=== PATIENT | female | born 1995 | race African-American/Black ===

== ENCOUNTER 2020-01-06 11:13 | Observation (INO) ==
[2020-01-06] MEDS ORDERED: METOCLOPRAMIDE 10 MG/2 ML VIAL IV STA (11:51)
[2020-01-06] MEDS ORDERED: PANTOPRAZOLE 40 MG VIAL IV STA (11:51)
[2020-01-06] MEDS ORDERED: ONDANSETRON 4 MG/2 ML VIAL IV STA (11:51)
[2020-01-06] MEDS ORDERED: SODIUM CHLORIDE 0.9% 1,000 ML IV STA ×2 (11:51→13:09)
[2020-01-06] MEDS ORDERED: PROMETHAZINE INJ 25 MG in SODIUM CHLORIDE 0.9% 50 ML IV STA (13:09)
[2020-01-06] MEDS ORDERED: PROMETHAZINE 25 MG/1 ML VIAL ONE (13:10)
[2020-01-06 13:18] LABS: Apearance,Urine Slightly Hazy (Clear); Bilirubin,Urine Moderate mg/dL (Negative); Blood, Urine Small mg/dL (Negative); Glucose,Urine (UA) Negative (Negative); Hyaline Casts,Urine 67 /LPF (0-3); Ketones,Urine 20 mg/dL (Negative); Mucus,Urine Few /LPF (Occasional); Nitrite,Urine Negative (Negative); Protein,Urine 100 MG/DL; RBC,Urine 8 /HPF (0-4); Squamous Epithelial Cell,Urine Few /HPF (0-10); Urine Color Dark yellow (Yellow); Urine Specific Gravity 1.016 (1.001-1.035); WBC,Urine 31 /HPF (0-6)
[2020-01-06] MEDS ORDERED: cefTRIAXone 1,000 MG in SODIUM CHLORIDE 0.9% 100 ML IV STA (13:31)
[2020-01-06 13:43] LABS: Basophils # 0.1 10*3/uL (0.0-0.2); Basophils % 0.4 % (0.0-0.8); Eosinophils % 0.1 % (0.00-10.9); Hemoglobin 16.4 GM/DL (12.0-16.0); Immature Granulocytes % 0.4 %; Immature Granulocytes Absolute 0.05 #; Lymphocytes # 1.8 10*3/uL (1.4-4.0); Lymphocytes % 12.6 % (21.3-54.2); Mean Corpuscular HGB Conc 34.2 GM/DL (32-36); Mean Corpuscular Volume 82.5 FL (87-102); Monocytes % 5.3 % (1.7-12.7); Neutrophils % 81.2 % (38.7-73.9); Platelet Count 352 T/CUMM (130-400); Red Blood Count 5.82 MC/CUMM (3.8-5.5); Red Cell Distribution Width 12.7 % (9.3-17.3); White Blood Count 13.9 T/CUMM (4-12)
[2020-01-06 13:47] LABS: Calcium 11.1 MG/DL (8.5-10.1); Osmolality,Calculated 288.4 MOS/KG (273-304)
[2020-01-06 14:53] LABS: Platelet Estimate Adequate
[2020-01-06] MEDS ORDERED: MAGNESIUM HYDROXIDE SUSP 30 ML UDCUP PO PRN (15:54)
[2020-01-06] MEDS ORDERED: IBUPROFEN 800 MG TABLET PO PRN (15:54)
[2020-01-06] MEDS ORDERED: ACETAMINOPHEN 325 MG TABLET PO PRN (15:54)
[2020-01-06] MEDS ORDERED: PROMETHAZINE INJ 25 MG in SODIUM CHLORIDE 0.9% 50 ML IV PRN (15:54)
[2020-01-06] MEDS ORDERED: BISACODYL 10 MG SUPP RECTAL PRN (15:54)
[2020-01-06] MEDS ORDERED: POTASSIUM CHLORIDE RIDER 20 MEQ in PREMIX 1 EACH IV ONE (16:30)
[2020-01-06] MEDS: LACTATED RINGERS 1,000 ML IV SCH (16:40)
[2020-01-06] MEDS: ONDANSETRON 4 MG/2 ML VIAL IV PRN (17:46)
[2020-01-06] MEDS: PANTOPRAZOLE 40 MG VIAL IV SCH (20:55)
[2020-01-06] MEDS: METOCLOPRAMIDE 10 MG/2 ML VIAL IV PRN (22:16)
[2020-01-07] MEDS: ONDANSETRON 4 MG/2 ML VIAL IV PRN ×3 (01:45→16:48)
[2020-01-07] MEDS: LACTATED RINGERS 1,000 ML IV SCH ×2 (01:45→19:51)
[2020-01-07] MEDS: METOCLOPRAMIDE 10 MG/2 ML VIAL IV PRN ×3 (04:45→22:58)
[2020-01-07 05:04] LABS: Basophils # 0.1 10*3/uL (0.0-0.2); Basophils % 0.6 % (0.0-0.8); Eosinophils # 0.1 10*3/uL (0.0-0.87); Eosinophils % 0.6 % (0.00-10.9); Hemoglobin 11.9 GM/DL (12.0-16.0); Immature Granulocytes % 0.2 %; Immature Granulocytes Absolute 0.02 #; Lymphocytes % 21.4 % (21.3-54.2); Mean Corpuscular HGB Conc 33.1 GM/DL (32-36); Mean Corpuscular Volume 84.9 FL (87-102); Mean Platelet Volume 10.9 FL (9.6-12.0); Monocytes % 9.2 % (1.7-12.7); Platelet Count 238 T/CUMM (130-400); Red Blood Count 4.24 MC/CUMM (3.8-5.5); White Blood Count 9.4 T/CUMM (4-12)
[2020-01-07 05:32] LABS: Calcium 9.5 MG/DL (8.5-10.1); Osmolality,Calculated 295.1 MOS/KG (273-304)
[2020-01-07] MEDS: POTASSIUM CHLORIDE RIDER 10 MEQ in PREMIX 1 EACH IV PRN ×3 (06:28→23:03)
[2020-01-07] MEDS ORDERED: MULTIVITAMIN INJ 10 ML in SODIUM CHLORIDE 0.9% 1,000 ML IV SCH (08:30)
[2020-01-07] MEDS: PANTOPRAZOLE 40 MG VIAL IV SCH ×2 (09:17→20:26)
[2020-01-07] MEDS: DOCUSATE SODIUM 100 MG CAPSULE PO SCH ×2 (09:24→20:26)
[2020-01-07] MEDS ORDERED: cefTRIAXone 1,000 MG in SYRINGE 1 EACH IV SCH (13:00)
[2020-01-08] MEDS: ONDANSETRON 4 MG/2 ML VIAL IV PRN (02:12)
[2020-01-08] MEDS: LACTATED RINGERS 1,000 ML IV SCH ×2 (04:10→09:18)
[2020-01-08] MEDS: METOCLOPRAMIDE 10 MG/2 ML VIAL IV PRN (04:56)
[2020-01-08 05:24] LABS: Calcium 8.9 MG/DL (8.5-10.1)
[2020-01-08] MEDS ORDERED: SCOPOLAMINE 1.5 MG PATCH TRANSDERM ONE (07:34)
[2020-01-08] MEDS ORDERED: METOCLOPRAMIDE 10 MG TABLET PO SCH ×2 (08:00→11:00)
[2020-01-08] MEDS ORDERED: SODIUM CHLOR 0.9% KCL 20 MEQ 20 MEQ/1,000 ML BAG IV SCH (08:00)
[2020-01-08] MEDS: DOCUSATE SODIUM 100 MG CAPSULE PO SCH (08:42)
[2020-01-08] MEDS ORDERED: POTASSIUM CHLORIDE 20 MEQ TABLET PO PRN (08:43)
[2020-01-08] MEDS ORDERED: PANTOPRAZOLE 40 MG TABLET PO SCH (09:00)
[2020-01-08 12:13] VITALS: BP 105/55
[2020-01-08] MEDS ORDERED: POTASSIUM CHLORIDE 20 MEQ TABLET PO SCH (21:00)
== END 2020-01-08 13:55 | disposition home or self-care (01) ==
LOC: N.EDINP 11:13 → N.ED 11:13 → N.OB 15:22
PROVIDERS: ADMIT Specialist; ATTEND Specialist

== ENCOUNTER 2020-01-20 10:28 | Observation (INO) ==
[2020-01-20 11:52] LABS: Basophils % 0.3 % (0.0-0.8); Eosinophils % 0.3 % (0.00-10.9); Hematocrit 36.8 VOL% (35.7-47.0); Hemoglobin 12.5 GM/DL (12.0-16.0); Immature Granulocytes % 0.3 %; Immature Granulocytes Absolute 0.03 #; Lymphocytes # 1.6 10*3/uL (1.4-4.0); Lymphocytes % 16.5 % (21.3-54.2); Mean Corpuscular Volume 82.9 FL (87-102); Mean Platelet Volume 10.5 FL (9.6-12.0); Monocytes % 5.6 % (1.7-12.7); Platelet Count 283 T/CUMM (130-400); Red Blood Count 4.44 MC/CUMM (3.8-5.5); Red Cell Distribution Width 12.5 % (9.3-17.3); White Blood Count 9.8 T/CUMM (4-12)
[2020-01-20 12:00] LABS: Apearance,Urine Slightly Hazy (Clear); Blood, Urine Negative (Negative); Glucose,Urine (UA) Negative (Negative); Hyaline Casts,Urine 12 /LPF (0-3); Ketones,Urine 80 mg/dL (Negative); Mucus,Urine Many /LPF (Occasional); Nitrite,Urine Negative (Negative); Protein,Urine 100 MG/DL; RBC,Urine 2 /HPF (0-4); Squamous Epithelial Cell,Urine Many /HPF (0-10); Urine Color Amber (Yellow); Urine Specific Gravity 1.017 (1.001-1.035); WBC,Urine 7 /HPF (0-6)
[2020-01-20 12:01] LABS: Bilirubin,Urine Small mg/dL (Negative)
[2020-01-20] MEDS ORDERED: PROMETHAZINE INJ 25 MG in SODIUM CHLORIDE 0.9% 50 ML IV STA (12:03)
[2020-01-20] MEDS ORDERED: PANTOPRAZOLE 40 MG VIAL IV STA (12:03)
[2020-01-20] MEDS ORDERED: SODIUM CHLORIDE 0.9% 1,000 ML IV STA ×2 (12:03→13:26)
[2020-01-20 12:14] LABS: Albumin 3.8 G/DL (3.4-5.0); Bilirubin,Total 1.6 MG/DL (0.2-1.0); Calcium 10.6 MG/DL (8.5-10.1); Osmolality,Calculated 271.7 MOS/KG (273-304); Total Protein 8.7 G/DL (6.4-8.3)
[2020-01-20] MEDS ORDERED: PROMETHAZINE 25 MG/1 ML VIAL ONE (12:15)
[2020-01-20] MEDS ORDERED: cefTRIAXone 1,000 MG in SODIUM CHLORIDE 0.9% 100 ML IV STA (13:26)
[2020-01-20] MEDS ORDERED: POTASSIUM CHLORIDE 20 MEQ TABLET PO STA (13:51)
[2020-01-20] MEDS ORDERED: IBUPROFEN 800 MG TABLET PO PRN (15:28)
[2020-01-20] MEDS ORDERED: MAGNESIUM HYDROXIDE SUSP 30 ML UDCUP PO PRN (15:28)
[2020-01-20] MEDS ORDERED: BISACODYL 10 MG SUPP RECTAL PRN (15:28)
[2020-01-20] MEDS ORDERED: LACTATED RINGERS 1,000 ML IV SCH (15:28)
[2020-01-20] MEDS ORDERED: PROMETHAZINE 25 MG/1 ML VIAL IM PRN (15:28)
[2020-01-20] MEDS ORDERED: ACETAMINOPHEN 325 MG TABLET PO PRN (15:28)
[2020-01-20] MEDS: SODIUM CHLOR 0.9% KCL 20 MEQ 20 MEQ/1,000 ML BAG IV SCH (15:46)
[2020-01-20] MEDS: ONDANSETRON 4 MG/2 ML VIAL IV PRN (15:47)
[2020-01-20] MEDS: DOCUSATE SODIUM 100 MG CAPSULE PO SCH (21:27)
[2020-01-20] MEDS: DOXYLAMINE 25 MG PO SCH (21:27)
[2020-01-20] MEDS: PYRIDOXINE 50 MG TABLET PO SCH (21:27)
[2020-01-21] MEDS: SODIUM CHLOR 0.9% KCL 20 MEQ 20 MEQ/1,000 ML BAG IV SCH ×4 (00:46→18:49)
[2020-01-21 05:10] LABS: Basophils % 0.3 % (0.0-0.8); Eosinophils # 0.1 10*3/uL (0.0-0.87); Hemoglobin 10.6 GM/DL (12.0-16.0); Immature Granulocytes % 0.3 %; Immature Granulocytes Absolute 0.02 #; Lymphocytes # 1.8 10*3/uL (1.4-4.0); Mean Corpuscular HGB Conc 33.1 GM/DL (32-36); Mean Corpuscular Volume 85.1 FL (87-102); Mean Platelet Volume 10.4 FL (9.6-12.0); Monocytes % 5.7 % (1.7-12.7); Neutrophils % 60.7 % (38.7-73.9); Platelet Count 219 T/CUMM (130-400); Red Blood Count 3.76 MC/CUMM (3.8-5.5); Red Cell Distribution Width 12.7 % (9.3-17.3); White Blood Count 5.8 T/CUMM (4-12)
[2020-01-21 05:34] LABS: Albumin 2.7 G/DL (3.4-5.0); Calcium 8.7 MG/DL (8.5-10.1); Osmolality,Calculated 275.3 MOS/KG (273-304); Total Protein 6.6 G/DL (6.4-8.3)
[2020-01-21] MEDS: ONDANSETRON 4 MG/2 ML VIAL IV PRN ×2 (07:19→20:50)
[2020-01-21] MEDS: PYRIDOXINE 50 MG TABLET PO SCH ×3 (08:55→22:34)
[2020-01-21] MEDS: DOCUSATE SODIUM 100 MG CAPSULE PO SCH ×2 (08:59→22:34)
[2020-01-21] MEDS ORDERED: PANTOPRAZOLE 40 MG VIAL IV SCH (09:00)
[2020-01-21 12:28] LABS: Apearance,Urine Slightly Hazy (Clear); Bacteria,Urine Occasional /HPF (Few); Bilirubin,Urine Negative (Negative); Blood, Urine Negative (Negative); Glucose,Urine (UA) Negative (Negative); Hyaline Casts,Urine 1 /LPF (0-3); Ketones,Urine 20 mg/dL (Negative); Mucus,Urine Moderate /LPF (Occasional); Nitrite,Urine Negative (Negative); Protein,Urine Negative; RBC,Urine 2 /HPF (0-4); Squamous Epithelial Cell,Urine Few /HPF (0-10); Urine Color Yellow (Yellow); Urine Specific Gravity 1.008 (1.001-1.035); Urine Urobilinogen < 2.0 EU/DL (0.2-1.0); WBC,Urine 9 /HPF (0-6)
[2020-01-21] MEDS ORDERED: SODIUM CHLORIDE 0.9% 100 ML IV ONE (13:46)
[2020-01-21] MEDS ORDERED: AMPICILLIN 1,000 MG VIAL ONE (13:46)
[2020-01-21] MEDS: AMPICILLIN INJ 1,000 MG in SODIUM CHLORIDE 0.9% 100 ML IV SCH ×2 (13:54→20:54)
[2020-01-21] MEDS ORDERED: cefTRIAXone 1,000 MG in SYRINGE 1 EACH IV SCH (14:00)
[2020-01-21] MEDS ORDERED: LACTATED RINGERS 1,000 ML IV ONE ×2 (16:45→17:45)
[2020-01-21] MEDS ORDERED: MAGNESIUM CITRATE 300 ML BOTTLE PO PRN (16:46)
[2020-01-21] MEDS: DOXYLAMINE 25 MG PO SCH (22:41)
[2020-01-22] MEDS: PANTOPRAZOLE 40 MG VIAL IV SCH ×2 (00:05→09:07)
[2020-01-22] MEDS: SODIUM CHLOR 0.9% KCL 20 MEQ 20 MEQ/1,000 ML BAG IV SCH ×2 (02:19→11:02)
[2020-01-22] MEDS: AMPICILLIN INJ 1,000 MG in SODIUM CHLORIDE 0.9% 100 ML IV SCH ×3 (02:22→15:29)
[2020-01-22 06:30] LABS: Alanine Aminotransferase 44 U/L (13-56); Albumin 2.5 G/DL (3.4-5.0); Alkaline Phosphatase 65 U/L (45-117); Aspartate Amino Transferase 19 U/L (0-37); Blood Urea Nitrogen < 1 MG/DL (7-18); Calcium 8.5 MG/DL (8.5-10.1); Estimated Glom Filtration Rate 173 ML/MIN; Glucose 78 MG/DL (74-106); Osmolality,Calculated 275.6 MOS/KG (273-304); Total Protein 5.9 G/DL (6.4-8.3)
[2020-01-22] MEDS ORDERED: SCOPOLAMINE 1.5 MG PATCH TRANSDERM SCH (09:00)
[2020-01-22] MEDS: DOCUSATE SODIUM 100 MG CAPSULE PO SCH (09:05)
[2020-01-22] MEDS: PYRIDOXINE 50 MG TABLET PO SCH (09:05)
[2020-01-22] MEDS: ONDANSETRON 4 MG/2 ML VIAL IV PRN (09:20)
[2020-01-22 11:33] LABS: Apearance,Urine CLEAR (Clear); Bilirubin,Urine Negative (Negative); Blood, Urine Negative (Negative); Glucose,Urine (UA) Negative (Negative); Ketones,Urine Negative (Negative); Mucus,Urine Occasional /LPF (Occasional); Nitrite,Urine Negative (Negative); Protein,Urine Negative; RBC,Urine 1 /HPF (0-4); Squamous Epithelial Cell,Urine Occasional /HPF (0-10); Urine Color Straw (Yellow); Urine Specific Gravity 1.006 (1.001-1.035); Urine Urobilinogen < 2.0 EU/DL (0.2-1.0); WBC,Urine 4 /HPF (0-6)
[2020-01-22 13:35] VITALS: BP 115/66
[2020-01-22] MEDS ORDERED: PROMETHAZINE 25 MG SUPP RECTAL ONE (14:26)
[2020-01-22] MEDS ORDERED: MAGNESIUM CITRATE 300 ML BOTTLE PO ONE (14:29)
[2020-01-22] MEDS ORDERED: AMPICILLIN 1,000 MG VIAL ONE (15:17)
== END 2020-01-22 18:05 | disposition home or self-care (01) ==
LOC: N.ED 10:28 → N.EDINP 10:28 → N.OB 15:15
PROVIDERS: ADMIT Specialist; ATTEND Specialist

== ENCOUNTER 2020-02-09 16:47 | Observation (INO) ==
[2020-02-09] MEDS ORDERED: LACTATED RINGERS 1,000 ML IV ONE ×2 (17:06→17:54)
[2020-02-09] MEDS: PANTOPRAZOLE 40 MG VIAL IV SCH (17:17)
[2020-02-09] MEDS: ONDANSETRON 4 MG/2 ML VIAL IV PRN (17:20)
[2020-02-09 18:00] LABS: Basophils % 0.3 % (0.0-0.8); Eosinophils % 0.2 % (0.00-10.9); Hematocrit 38.3 VOL% (35.7-47.0); Immature Granulocytes % 0.4 %; Immature Granulocytes Absolute 0.04 #; Lymphocytes # 1.6 10*3/uL (1.4-4.0); Lymphocytes % 15.2 % (21.3-54.2); Mean Corpuscular HGB Conc 33.9 GM/DL (32-36); Mean Corpuscular Volume 81.8 FL (87-102); Mean Platelet Volume 11.4 FL (9.6-12.0); Monocytes % 8.3 % (1.7-12.7); Neutrophils % 75.6 % (38.7-73.9); Platelet Count 368 T/CUMM (130-400); Red Blood Count 4.68 MC/CUMM (3.8-5.5); Red Cell Distribution Width 13.3 % (9.3-17.3); White Blood Count 10.2 T/CUMM (4-12)
[2020-02-09 18:13] LABS: Albumin 3.6 G/DL (3.4-5.0); Bilirubin,Total 1.8 MG/DL (0.2-1.0); Calcium 10.1 MG/DL (8.5-10.1); Osmolality,Calculated 266.1 MOS/KG (273-304); Total Protein 8.4 G/DL (6.4-8.3)
[2020-02-09] MEDS: SODIUM CHLOR 0.9% KCL 20 MEQ 20 MEQ/1,000 ML BAG IV SCH (19:33)
[2020-02-09 20:06] LABS: Bacteria,Urine Occasional /HPF (Few); Bilirubin,Urine Small mg/dL (Negative); Blood, Urine Negative (Negative); Glucose,Urine (UA) Negative (Negative); Hyaline Casts,Urine 40 /LPF (0-3); Ketones,Urine 80 mg/dL (Negative); Mucus,Urine Many /LPF (Occasional); Nitrite,Urine Negative (Negative); Protein,Urine 100 MG/DL; RBC,Urine 4 /HPF (0-4); Squamous Epithelial Cell,Urine Occasional /HPF (0-10); Urine Appearance Slightly Hazy (Clear); Urine Specific Gravity 1.017 (1.001-1.035); WBC,Urine 8 /HPF (0-6)
[2020-02-09 20:07] LABS: Urine Color Dark yellow (Yellow)
[2020-02-10] MEDS: SODIUM CHLOR 0.9% KCL 20 MEQ 20 MEQ/1,000 ML BAG IV SCH ×2 (03:12→20:49)
[2020-02-10] MEDS: PANTOPRAZOLE 40 MG VIAL IV SCH ×3 (04:11→20:38)
[2020-02-10] MEDS ORDERED: SODIUM CHLORIDE 0.9% 100 ML IV ONE (08:14)
[2020-02-10] MEDS: cefTRIAXone 1,000 MG in SYRINGE 1 EACH IV SCH (08:21)
[2020-02-10 09:54] LABS: Albumin 2.6 G/DL (3.4-5.0); Bilirubin,Total 1.1 MG/DL (0.2-1.0); Calcium 8.8 MG/DL (8.5-10.1); Osmolality,Calculated 267.8 MOS/KG (273-304); Total Protein 6.2 G/DL (6.4-8.3)
[2020-02-10] MEDS: THIAMINE INJ 100 MG, FOLIC ACID INJ 1 MG, MULTIVITAMIN INJ 10 ML in DEXTROSE 5% NACL 0.... IV SCH (11:26)
[2020-02-10] MEDS: ONDANSETRON 4 MG/2 ML VIAL IV PRN (12:36)
[2020-02-10] MEDS: ALUMINUM/MAGNES/SIMETH MAX STR 30 ML UDCUP PO PRN ×2 (15:14→19:45)
[2020-02-11] MEDS: SODIUM CHLOR 0.9% KCL 20 MEQ 20 MEQ/1,000 ML BAG IV SCH ×3 (04:24→19:08)
[2020-02-11 05:54] LABS: Alanine Aminotransferase 82 U/L (13-56); Albumin 2.4 G/DL (3.4-5.0); Alkaline Phosphatase 62 U/L (45-117); Aspartate Amino Transferase 36 U/L (0-37); Blood Urea Nitrogen < 1 MG/DL (7-18); Calcium 8.3 MG/DL (8.5-10.1); Estimated Glom Filtration Rate 165 ML/MIN; Glucose 74 MG/DL (74-106); Osmolality,Calculated 273.8 MOS/KG (273-304); Total Protein 5.6 G/DL (6.4-8.3)
[2020-02-11] MEDS ORDERED: BUPIVACAINE MPF 0.25% 30 ML VIAL ONE (06:44)
[2020-02-11] MEDS ORDERED: LIDOCAINE 1%/EPI INJ 20 ML VIAL ONE (06:44)
[2020-02-11] MEDS ORDERED: cefTRIAXone 1,000 MG VIAL ONE (07:39)
[2020-02-11] MEDS ORDERED: ONDANSETRON 4 MG/2 ML VIAL ONE (08:31)
[2020-02-11] MEDS ORDERED: SUCCINYLCHOLINE 200 MG/10 ML VIAL ONE (08:31)
[2020-02-11] MEDS ORDERED: ROCURONIUM 100 MG/10 ML VIAL IV ONE (08:31)
[2020-02-11] MEDS ORDERED: fentaNYL 100 MCG/2 ML VIAL ONE (08:31)
[2020-02-11] MEDS ORDERED: propofoL 200 MG/20 ML VIAL IV ONE (08:31)
[2020-02-11] MEDS ORDERED: LIDOCAINE 2% 5 ML VIAL ONE (08:31)
[2020-02-11] MEDS ORDERED: SEVOFLURANE 1 UNIT/15 MINUTE INH ONE (08:31)
[2020-02-11] MEDS ORDERED: MEPERIDINE 25 MG/1 ML VIAL IV PRN (08:39)
[2020-02-11] MEDS ORDERED: MEPERIDINE 25 MG/1 ML VIAL ONE (08:41)
[2020-02-11] MEDS ORDERED: HYDROcod/ACETAMIN 7.5-325 MG/15 ML UDCUP PO PRN (11:07)
[2020-02-11] MEDS ORDERED: HYDROmorphone 2 MG/1 ML VIAL IV PRN (11:07)
[2020-02-11] MEDS: cefTRIAXone 1,000 MG in SYRINGE 1 EACH IV SCH (12:28)
[2020-02-11] MEDS: ONDANSETRON 4 MG/2 ML VIAL IV PRN (12:31)
[2020-02-11] MEDS: PANTOPRAZOLE 40 MG VIAL IV SCH ×2 (19:05→21:13)
[2020-02-12] MEDS: THIAMINE INJ 100 MG, FOLIC ACID INJ 1 MG, MULTIVITAMIN INJ 10 ML in DEXTROSE 5% NACL 0.... IV SCH (03:39)
[2020-02-12 06:08] LABS: Basophils % 0.3 % (0.0-0.8); Eosinophils # 0.1 10*3/uL (0.0-0.87); Eosinophils % 0.6 % (0.00-10.9); Hematocrit 28.9 VOL% (35.7-47.0); Hemoglobin 9.7 GM/DL (12.0-16.0); Immature Granulocytes % 0.5 %; Immature Granulocytes Absolute 0.04 #; Lymphocytes % 25.9 % (21.3-54.2); Mean Corpuscular HGB Conc 33.6 GM/DL (32-36); Mean Corpuscular Volume 83.8 FL (87-102); Mean Platelet Volume 10.8 FL (9.6-12.0); Monocytes % 7.6 % (1.7-12.7); Neutrophils % 65.1 % (38.7-73.9); Platelet Count 222 T/CUMM (130-400); Red Blood Count 3.45 MC/CUMM (3.8-5.5); Red Cell Distribution Width 13.4 % (9.3-17.3); White Blood Count 7.7 T/CUMM (4-12)
[2020-02-12 06:27] LABS: Alanine Aminotransferase 77 U/L (13-56); Albumin 2.3 G/DL (3.4-5.0); Alkaline Phosphatase 67 U/L (45-117); Aspartate Amino Transferase 33 U/L (0-37); Blood Urea Nitrogen < 1 MG/DL (7-18); Calcium 8.5 MG/DL (8.5-10.1); Estimated Glom Filtration Rate 168 ML/MIN; Glucose 83 MG/DL (74-106); Osmolality,Calculated 273.8 MOS/KG (273-304); Total Protein 5.7 G/DL (6.4-8.3)
[2020-02-12] MEDS: PANTOPRAZOLE 40 MG VIAL IV SCH (09:26)
[2020-02-12 10:16] VITALS: BP 105/59
== END 2020-02-12 12:45 | disposition home or self-care (01) ==
LOC: N.OB 16:47 → N.LDOUT 16:47 → N.OB 16:51 → N.LDOUT 16:55 → N.OB 16:56
PROVIDERS: ADMIT Specialist; ATTEND Specialist
PROC: LAPCHOL (2020-02-11 07:10)

== ENCOUNTER 2020-02-28 12:49 | Observation (INO) ==
[2020-02-28] MEDS ORDERED: LACTATED RINGERS 2,000 ML IV ONE (13:20)
[2020-02-28] MEDS ORDERED: PANTOPRAZOLE 40 MG VIAL IV ONE (13:29)
[2020-02-28] MEDS: ONDANSETRON 4 MG/2 ML VIAL IV PRN (13:48)
[2020-02-28 14:19] LABS: Basophils % 0.3 % (0.0-0.8); Eosinophils % 0.3 % (0.00-10.9); Hematocrit 35.8 VOL% (35.7-47.0); Hemoglobin 12.2 GM/DL (12.0-16.0); Immature Granulocytes % 0.2 %; Immature Granulocytes Absolute 0.02 #; Lymphocytes # 1.3 10*3/uL (1.4-4.0); Lymphocytes % 14.7 % (21.3-54.2); Mean Corpuscular HGB Conc 34.1 GM/DL (32-36); Mean Corpuscular Volume 82.7 FL (87-102); Mean Platelet Volume 10.9 FL (9.6-12.0); Monocytes % 6.4 % (1.7-12.7); Neutrophils % 78.1 % (38.7-73.9); Platelet Count 264 T/CUMM (130-400); Red Blood Count 4.33 MC/CUMM (3.8-5.5); White Blood Count 9.1 T/CUMM (4-12)
[2020-02-28 14:39] LABS: Albumin 3.4 G/DL (3.4-5.0); Bilirubin,Total 0.6 MG/DL (0.2-1.0); Calcium 9.9 MG/DL (8.5-10.1); Osmolality,Calculated 271.7 MOS/KG (273-304); Total Protein 8.1 G/DL (6.4-8.3)
[2020-02-28 15:57] LABS: Bacteria,Urine Occasional /HPF (Few); Bilirubin,Urine Negative (Negative); Blood, Urine Negative (Negative); Glucose,Urine (UA) Negative (Negative); Hyaline Casts,Urine 15 /LPF (0-3); Ketones,Urine 80 mg/dL (Negative); Mucus,Urine Few /LPF (Occasional); Nitrite,Urine Negative (Negative); Protein,Urine 30 MG/DL; Squamous Epithelial Cell,Urine Few /HPF (0-10); Urine Appearance Slightly Hazy (Clear); Urine Color Amber (Yellow); Urine Specific Gravity 1.015 (1.001-1.035); Urine Urobilinogen < 2.0 EU/DL (0.2-1.0); WBC,Urine 5 /HPF (0-6)
[2020-02-28] MEDS: POTASSIUM CHLORIDE RIDER 10 MEQ in PREMIX 1 EACH IV PRN ×4 (16:24→21:54)
[2020-02-28] MEDS: LACTATED RINGERS 1,000 ML IV SCH ×2 (16:45→23:02)
[2020-02-29] MEDS: POTASSIUM CHLORIDE RIDER 10 MEQ in PREMIX 1 EACH IV PRN (00:15)
[2020-02-29 06:17] LABS: Albumin 2.5 G/DL (3.4-5.0); Bilirubin,Total 0.7 MG/DL (0.2-1.0); Calcium 8.8 MG/DL (8.5-10.1); Osmolality,Calculated 273.4 MOS/KG (273-304); Total Protein 5.6 G/DL (6.4-8.3)
[2020-02-29] MEDS ORDERED: POTASSIUM CHLORIDE INJ 40 MEQ in LACTATED RINGERS 1,000 ML IV SCH (08:00)
[2020-02-29] MEDS ORDERED: POTASSIUM CHLORIDE 20 MEQ PACK PO SCH (09:00)
[2020-02-29] MEDS: ONDANSETRON 4 MG/2 ML VIAL IV PRN (17:28)
[2020-02-29] MEDS: POTASSIUM CHLORIDE INJ 20 MEQ in LACTATED RINGERS 1,000 ML IV SCH (21:11)
[2020-03-01] MEDS: POTASSIUM CHLORIDE INJ 20 MEQ in LACTATED RINGERS 1,000 ML IV SCH ×2 (05:07→18:29)
[2020-03-01 06:48] LABS: Albumin 2.3 G/DL (3.4-5.0); Bilirubin,Total 0.5 MG/DL (0.2-1.0); Calcium 8.5 MG/DL (8.5-10.1); Osmolality,Calculated 275.3 MOS/KG (273-304); Total Protein 5.5 G/DL (6.4-8.3)
[2020-03-01] MEDS: ONDANSETRON 4 MG/2 ML VIAL IV PRN (08:38)
[2020-03-01] MEDS: POTASSIUM CHLORIDE RIDER 10 MEQ in PREMIX 1 EACH IV PRN ×5 (08:40→16:54)
[2020-03-01] MEDS ORDERED: LACTATED RINGERS 1,000 ML IV SCH (12:00)
[2020-03-01] MEDS: PANTOPRAZOLE 40 MG VIAL IV SCH ×2 (15:00→21:35)
[2020-03-02] MEDS: PANTOPRAZOLE 40 MG VIAL IV SCH (09:59)
[2020-03-02 13:34] VITALS: BP 123/76
== END 2020-03-02 15:50 | disposition home or self-care (01) ==
LOC: N.OB 12:49 → N.OBOUT 12:49 → N.SDSINP 12:49 → N.OB 12:51 → N.SDSINP 12:51 → UNDODEPREF 03-08 11:33
PROVIDERS: ADMIT Specialist; ATTEND Specialist